=== PATIENT | female | born 1995 | race Caucasian/White ===

== ENCOUNTER 2017-01-25 07:57 | Emergency (ER) | payer BC ==
[~2017-01-25] VITALS: Ht 162.6 cm; Wt 65.8 kg
--- NOTE | 2017-01-25 07:57 | NUR ---
Patient was BIBA and taken to bed 04 via gurney.
[2017-01-25 08:00] VITALS: BP 127/82
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
--- NOTE | 2017-01-25 08:11 | NUR ---
Patient being evaluated by DR CHERRY at bedside.
[2017-01-25] MEDS ORDERED: CYCLOBENZAPRINE 10 MG TAB PO ONE (08:15)
[2017-01-25] MEDS ORDERED: KETOROLAC 30 MG/ML VIAL IM ONE (08:15)
--- NOTE | 2017-01-25 08:26 | NUR ---
[place] [facility] AT BEDSIDE.
--- NOTE | 2017-01-25 08:55 | NUR ---
Patient taken to XRAY via gurney.
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
--- NOTE | 2017-01-25 09:36 | NUR ---
PT BACK FROM X RAY VIA [facility],ACCOMPANIED BY [employer] AT THIS TIME
--- NOTE | 2017-01-25 09:37 | NUR ---
FAMILY AT BEDSIDE.
[2017-01-25] MEDS ORDERED: ACETAMINOPHEN EXTRA STRENGTH 500 MG TAB PO ONE (09:50)
[2017-01-25 10:08] VITALS: BP 104/67
--- NOTE | 2017-01-25 10:08 | NUR ---
Patient discharged with v/s stable. Written and verbal after care instructions given and explained. Patient alert, oriented and verbalized understanding of instructions. Ambulatory with steady gait. All questions addressed prior to discharge. ID band removed. Patient advised to follow up with PMD. Rx of FLEXERIL & NAPROXEN given. Patient educated on indication of medication including possible reaction and side effects. Opportunity to ask questions provided and answered.
== END 2017-01-25 10:08 | disposition home or self-care (01) ==
LOC: MED 07:57
DX: R51 Headache (principal); M54.6 Pain in thoracic spine; M54.2 Cervicalgia
CPT/HCPCS: 72050; 72072; 81025; 96372; 99284; J1885